=== PATIENT | male | born 1985 | race Caucasian/White ===

== ENCOUNTER 2016-09-02 19:48 | Emergency (ER) | payer OTHER ==
[2016-09-02 20:08] VITALS: BP 147/73; PULSE 117; RESP 18; TEMP 97
[2016-09-02] MEDS ORDERED: CEPHALEXIN 500MG STARTER PACK 4 CAP BTL PO STA (20:30)
[2016-09-02] MEDS ORDERED: DIPH,PERTUS(ACELL)TETVAC-LF 0.5 ML VIAL IM ONE (20:30)
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
== END 2016-09-02 21:43 | disposition home or self-care (01) ==
LOC: EC 19:48
DX: S91.124A Laceration with foreign body of right lesser toe(s) without damage to nail, initial encounter (principal); S80.212A Abrasion, left knee, initial encounter; S80.211A Abrasion, right knee, initial encounter; S90.512A Abrasion, left ankle, initial encounter; S90.511A Abrasion, right ankle, initial encounter; F17.200 Nicotine dependence, unspecified, uncomplicated; Z23 Encounter for immunization; V87.8XXA Person injured in other specified noncollision transport accidents involving motor vehicle (traffic), initial encounter; Y92.410 Unspecified street and highway as the place of occurrence of the external cause
CPT/HCPCS: 90471; 90715; 99284

== ENCOUNTER 2021-11-07 11:58 | Emergency (ER) | payer BC ==
[2021-11-07 12:01] VITALS: BP 121/71; PULSE 64; RESP 16; TEMP 97.9
[2021-11-07] MEDS ORDERED: diphenhydrAMINE 50 MG/ML 1 ML VIAL IM STA (12:34)
[2021-11-07] MEDS ORDERED: FAMOTIDINE 20 MG TAB PO STA (12:34)
[2021-11-07] MEDS ORDERED: methylPREDNISolone SOD SUCCI 125 MG/2 ML VIAL IM ONE (12:34)
--- NOTE | 2021-11-07 13:33 | ED ---
General Adult HPI - General Chief complaint: Skin/Abscess/Foreign Body Stated complaint: Alergic reaction Time Seen by Provider: 11/07/21 12:20 Source: patient Mode of arrival: ambulatory Limitations: no limitations - History of Present Illness Initial comments: Patient is a 36-year-old male presenting with chief complaint of rash. Patient states that last night he noticed a rash on the bilateral extremities and trunk. It is erythematous and pruritic. No discharge or lesions/breaks in the skin. No fever or chills. No URI like symptoms. No chest pain, shortness of breath, dysphagia. Patient took Benadryl at home which was minimally helpful. No abdominal pain, nausea, vomiting. Patient states he was recently exposed to Covid. Patient states that there've been no new products or medications his routine, patient states he ate peanut butter for the first time in a while recently. - Related Data Previous Rx's Medication Instructions Recorded Cephalexin [Keflex] 500 mg PO Q6HR #28 cap 09/02/16 methylPREDNISolone Dose Pack 4 mg PO DIRECTED #1 packet 11/07/21 [Medrol Dose Pack] Allergies Allergy/AdvReac Type Severity Reaction Status Date / Time No Known Allergies Allergy Verified 11/07/21 12:01 Review of Systems ROS Statement: Those systems with pertinent positive or pertinent negative responses have been documented in the HPI. ROS Other: All systems not noted in ROS Statement are negative. Past Medical History Past Medical History: Unable to Obtain History of Any Multi-Drug Resistant Organisms: None Reported Past Surgical History: Unable to Obtain Past Psychological History: No Psychological Hx Reported Smoking Status: Never smoker Past Alcohol Use History: Heavy Past Drug Use History: None Reported General Exam Limitations: no limitations General appearance: alert, in no apparent distress Head exam: Present: atraumatic, normocephalic, normal inspection Eye exam: Present: normal appearance, EOMI. Absent: scleral icterus, periorbital swelling, periorbital tenderness ENT exam: Present: normal exam, normal oropharynx, mucous membranes moist Neck exam: Present: normal inspection Respiratory exam: Present: normal lung sounds bilaterally. Absent: respiratory distress, wheezes, rales, rhonchi, stridor Cardiovascular Exam: Present: regular rate, normal rhythm, normal heart sounds. Absent: systolic murmur, diastolic murmur, rubs, gallop, clicks Neurological exam: Present: alert, oriented X3, CN II-XII intact Psychiatric exam: Present: normal affect, normal mood Skin exam: Present: warm, dry, intact, rash (Erythematous and pruritic rash across the trunk and extremities) Course Vital Signs 11/07/21 11:59 Temperature 97.9 F Pulse Rate 64 Respiratory 16 Rate Blood Pressure 121/71 O2 Sat by Pulse 99 Oximetry Medical Decision Making - Medical Decision Making Patient is a 36-year-old male presenting for evaluation of rash. Rash occurred last night, it is erythematous and pruritic and covers the trunk and extremities. Patient states he was recently exposed to Covid. He denies any difficulty breathing or dysphasia. No chest pain. Heart and lungs are clear to auscultation and normal oropharynx. Rash resembles Covid rash, discussed with the patient the possibility of this being attributed to Covid, patient states he does not believe in "that stuff" and is refusing testing at this time. The continue to educate the patient on the potential for this rash to be due to Covid, he continued to decline testing. Patient states that he recently had peanut butter for the first time in a long time, the rash may possibly be attributed to this. He was given Pepcid, Benadryl, Solu-Medrol. He reports some improvement in symptoms. He is discharged with prescription for Medrol Dosepak and instructed to take Benadryl at home as needed. Follow-up with PCP. Do not consume peanut better. Report back to ER if any new or worsening symptoms. Discussed return parameters answered all questions. Patient conveyed verbal understanding and agreed to the plan. My attending is Dr. Jensen. Disposition Clinical Impression: Urticaria Disposition: HOME SELF-CARE Condition: Good Instructions (If sedation given, give patient instructions): Urticaria (ED) Additional Instructions: Follow-up with PCP in one to 2 days. Report back to ER with any new or worsening symptoms. Do not continue to consume peanut butter. Take medication as prescribed. Take Benadryl as needed, this may cause drowsiness, do not take before driving or operating heavy machinery. Prescriptions: methylPREDNISolone Dose Pack [Medrol Dose Pack] 4 mg PO DIRECTED #1 packet Is patient prescribed a controlled substance at d/c from ED?: No Referrals: Graham Hoover MD [Primary Care Provider] - 1-2 days Time of Disposition: 13:29
== END 2021-11-07 13:56 | disposition home or self-care (01) ==
LOC: EC 11:58
DX: L50.9 Urticaria, unspecified (principal); Z53.29 Procedure and treatment not carried out because of patient's decision for other reasons
CPT/HCPCS: 99283; 96372; J1200; J2930